=== PATIENT | female | born 1980 | race Caucasian/White ===

== ENCOUNTER → 2020-09-30 10:16 | Outpatient (CLI) | payer OTHER, SELFPAY ==
--- NOTE | ~2020-09-30 | MR_ITS ---
EXAMINATION: MR lumbar spine wo con EXAM DATE: 09/30/2020 10:56 INDICATION: Lumbar radiculopathy, low back pain and right hip pain. TECHNIQUE: Multi-sequential, multiplanar MR images of the lumbar spine were obtained without contrast . Sagittal T1, T2, T2 fat saturation images. Axial T2 weighted images. There is no prior study for comparison. FINDINGS: The vertebral bodies are aligned in the AP dimension. Vertebral body and disc heights are w ell-maintained. There is a 2 cm hemangioma within the L4 vertebral body. The vertebral body marrow is otherwise normal in signal intensity. The conus medullaris terminates at the L1/2 level and has norm al signal intensity and morphology. Paraspinal soft tissue is unremarkable. Level by level evaluation: T12-L1: Disc does not extend beyond the endplate margin. Facet arthropathy: Mild. Neural foraminal stenosis: No stenosis. Central canal stenosis: No stenosis. L1-L2: Disc does not extend beyond the endplate margin. Facet arthropathy: Mild to moderate right, mild left. Neural foraminal stenosis: No stenosis. Central canal stenosis: No stenosis. L2-L3: There is a minimal diffuse disc bulge. Facet arthropathy: None. Neural foraminal stenosis: No stenosis. Central canal stenosis: No stenosis. L3-L4: There is a minimal diffuse disc bulge. Facet arthropathy: Mild to moderate. Neural foraminal stenosis: No stenosis. Central canal stenosis: No stenosis. L4-L5: There is a mild diffuse disc bulge. Facet arthropathy: Moderate. Neural foraminal stenosis: Mild to moderate left, mild right. Central canal stenosis: Mild. L5-S1: Disc does not extend beyond the endplate margin. Facet arthropathy: Moderate to severe left, moderate right. Neural foraminal stenosis: Mild bilateral. Central canal stenosis: No stenosis. IMPRESSION: 1. Mild to moderate lumbar spondylosis. Reviewed, dictated and finalized at location A.
== END ==
PROVIDERS: PCP Internal Medicine; Visit Provider Internal Medicine
DX: M47.26 Other spondylosis with radiculopathy, lumbar region (principal)
CPT/HCPCS: 72148

== ENCOUNTER 2022-04-18 00:53 | Day surgery (SDC) | payer OTHER, SELFPAY ==
[2022-02-28 14:54] VITALS: BMI 49.1
--- NOTE | 2022-02-28 15:26 | PC.NURSE ---
Report to the Outpatient Waiting Room, entrance under the green pavilion located off [facility], at time ___7:00AM____ on date __03/07/22 . Planned Procedure Time: _9:00AM . Time changes happen often and if your time is changed the preop area will call you the afternoon before. - You and your visitor will be asked to self-screen and do not enter if you have any COVID symptoms. - We encourage only one visitor and NO visitors under age 16 are allowed at this time. Your visitor will receive communication by the phone number that is given day of service. - The patient visitor is requested to social distance or may leave the building when not with patient due to restrictions. - A mask is required within the hospital. Patients may have clear liquids (water, carbonated beverages, clear teas, apple juice) until 3 hours prior to surgery with a maximum of 20 ounces. - No food from midnight until time of surgery Take the following medications with a SIP of water the morning of surgery: __DULOXETINE, ALBUTEROL INHALER NEEDED Medications to discontinue per physician ____NONE Date to take last dose Please no make-up, nail [place] islander, hairspray, perfume, deodorant, or body powder the day of surgery. No jewelry (including any body piercings) or valuables the day of surgery, leave them at home. Please take a shower or bath the night before, or the morning of, surgery with an antibacterial soap. Wear comfortable, loose fitting clothing. Children are encouraged to wear pajamas. - Jewelry must be removed prior to entering the operating room. Rings and piercings that are not removed may be cut off. - The hospital will not accept responsibility for valuables. - Please leave all valuables, including medications, at home the day of surgery. If you are going home after surgery, a licensed haul truck driver must drive you home. - NO public transportation without another adult. - We recommend that an adult stay with you for 24 hours following discharge. - We also recommend that you do not drive, make important decision, drink alcoholic beverages, or take any drugs that were not prescribed by your health care provider for at least 24 hours after your discharge time. Follow any additional instructions given to you from your surgeon. If you or anyone in your household have experienced Covid symptoms in the past week, please notify your surgeon or the nurse liaison at the phone number below for possible testing. Telephone instructions given to _PATIENT and asked if any additional questions and then verbalized understanding. Patient advised to call surgeon office or pre surgery nurse liaison [phone] if any additional questions.
[2022-04-05 14:56] VITALS: BMI 49.1
--- NOTE | 2022-04-05 15:04 | PC.NURSE ---
Report to the Outpatient Waiting Room, entrance under the green pavilion located off [facility], at time 6:15 on date 04/18/22. Planned Procedure Time: 8:15. Time changes happen often and if your time is changed the preop area will call you the afternoon before. - You and your visitor will be asked to self-screen and do not enter if you have any COVID symptoms. - Only one visitor is requested with a max of two and NO children visitors are allowed at this time. - The patient visitor may be requested to leave or wait in car when not with patient due to distancing restrictions. - A mask is optional within the hospital. Patients may have clear liquids (water, carbonated beverages, clear teas, apple juice) until 3 hours prior to surgery (5:15) with a maximum of 20 ounces. - No food from midnight until time of surgery Take the following medications with a SIP of water the morning of surgery: INHALER IF NEEDED, DULOXETINE, GABAPENTIN Medications to discontinue per physician: N/A Date to take last dose: N/A Please no make-up, nail swazi, hairspray, perfume, deodorant, or body powder the day of surgery. No jewelry (including any body piercings) or valuables the day of surgery, leave them at home. Please take a shower or bath the night before, or the morning of, surgery with an antibacterial soap. Wear comfortable, loose fitting clothing. - Jewelry must be removed prior to entering the operating room. Rings and piercings that are not removed may be cut off. - The hospital will not accept responsibility for valuables. - Please leave all valuables, including medications, at home the day of surgery. If you are going home after surgery, a licensed dedicated regional driver must drive you home. - NO public transportation without another adult if you receive anesthesia. - We recommend that an adult stay with you for 24 hours following discharge. - We also recommend that you do not drive, make important decision, drink alcoholic beverages, or take any drugs that were not prescribed by your health care provider for at least 24 hours after your discharge time. Follow any additional instructions given to you from your surgeon. If you or anyone in your household have experienced Covid symptoms in the past week, please notify your surgeon or the nurse liaison at the phone number below for possible testing. Telephone instructions given to PATTY BORDEN and asked if any additional questions and then verbalized understanding. Patient advised to call surgeon office or pre surgery nurse liaison [phone] if any additional questions.
[2022-04-18 06:31] VITALS: BP 127/92; PULSE 67; RESP 18; TEMP 36.6; O2SAT 98
[2022-04-18] MEDS: LACTATED RINGERS 1,000 ML 30 ML IV CONT (07:10)
[2022-04-18] MEDS: ACETAMINOPHEN 500 MG TABLET 1000 MG PO (07:19)
[2022-04-18] MEDS: KETOROLAC 15 MG/ML VIAL (*BKC) IV PUSH (07:19)
[2022-04-18 07:22] LABS: Hematocrit 39.6 % (37.0-47.0); Hemoglobin 12.6 g/dL (12.0-15.0)
--- NOTE | 2022-04-18 07:27 | WPDHPUPDATE1 ---
History and Physical Update Update Date/Time: 04/18/22 07:27 History and Physical has been reviewed, including an updated exam of the patient. There are NO changes in the patient's condition. Risks, benefits, and alternatives have been discussed and questions answered. Patient agrees to proceed with procedure.
--- NOTE | 2022-04-18 07:27 | PM.HPGS ---
History of Present Illness History of Present Illness Consent: Risks, benefits, and alternatives have been discussed and questions answered. Patient agrees to proceed with procedure. Chief complaint: missing IUD Narrative: Joseph Howard is a 41 year old female who presented for her well-woman exam in November of 2021 to and no IUD strings were visualized. The patient underwent ultrasound which showed multiple fibroids and inability to visualize the IUD. There is a statement that the fibroids could be obscuring the IUD. The patient then underwent a KUB which does show the pelvis to contain an IUD to the right. It was recommended to proceed with D&C hysteroscopy which the patient has now rescheduled due to having COVID at the time of her previously scheduled procedure. The patient has had now menstrual cycles since the IUD was placed therefore it is very likely that the IUD is in the uterus. The plan is to proceed with D&C hysteroscopy for IUD removal and possible laparoscopy and possible exploratory laparotomy pending the findings at hysteroscopy. The risks of surgery were reviewed in detail. Risks of hysteroscopy including infection, bleeding, perforation, and possibility of not finding the IUD are reviewed. The risks of laparoscopy and laparotomy with a longer recovery were also reviewed. Patient voices understanding and agrees to proceed. Review of Systems Review of Systems: not repeated day of surgery; patient states no changes in status Gastrointestinal: Gastrointestinal: Reports heartburn Genitourinary: Genitourinary: Reports urinary incontinence Musculoskeletal: Musculoskeletal: Reports back pain, Reports arthralgias and Reports neck pain Psychiatric: Psychiatric: Reports anxiety [facility] Past Medical History Medical History (Updated 04/18/22 @ 07:34 by Patria Maki MD) Asthma HTN (hypertension) Osteoarthritis Surgical History Surgical History (Updated 04/18/22 @ 07:33 by Patria Maki MD) History of History of nasal surgery History of tonsillectomy Social History Social History Smoking status: Never smoker Drinks per week: 1 Substance use: never Substance use type: does not use Living arrangements: with family Additional living arrangements comments: HUSB Spiritual care concerns: No Meds Home Medications and Allergies Home Medications Medication Instructions Recorded Confirmed Type albuterol (refill) 90 90 mcg inhalation Q4-6H PRN Dyspnea 02/28/22 04/18/22 History mcg/actuation aerosol inhaler metoprolol succinate 25 mg 25 mg PO HS 02/28/22 04/18/22 History tablet,extended release 24 hr omeprazole magnesium 20 mg 20 mg PO DAILY PRN Indigestion 02/28/22 04/18/22 History tablet,delayed release (Prilosec OTC) spironolactone 25 1 tablet PO QAM 02/28/22 04/18/22 History mg-hydrochlorothiazide 25 mg tablet gabapentin 100 mg capsule 100 mg PO DAILY 04/05/22 04/18/22 History paroxetine HCl 10 mg tablet 10 mg PO BID 04/18/22 04/18/22 History Allergies Allergy/AdvReac Type Severity Reaction Status Date / Time amoxicillin Allergy Rash Verified 04/18/22 06:51 clavulanic acid Allergy Rash Verified 04/18/22 06:51 [From Augmentin] prochlorperazine Allergy PARANOIA Verified 04/18/22 06:51 [From Compazine] CITRIS FRUITS Allergy Anaphylaxis Uncoded 04/18/22 06:52 Exam Const: General: obese ( BMI of 48) Orientation/consciousness: patient oriented x3 Resp: Effort & Inspection: normal respiratory effort GI: GI Palp: Yes Soft to palpation, No Tenderness to palpation present (GI) and No Palpable mass present : External Female Exam: normal external appearance Speculum Exam - Vagina: normal appearance of the vagina and normal vaginal discharge Speculum Exam - Cervix: normal appearance of the cervix Bimanual exam- vagina & uterus: uterine size normal and consistency normal Bimanual Exam- Adnexa, other: normal adnexae and
[2022-04-18 07:31] LABS: Anion Gap 8 mmol/L (8-16); Blood Urea Nitrogen 14 mg/dL (7-17); Calcium 8.9 mg/dL (8.4-10.2); Carbon Dioxide 27 mmol/L (22-30); Chloride 99 mmol/L (98-107); Estimated CRCL calculation 105 ml/min; Estimated Glomerular Filt Rate > 60; Glucose 128 mg/dL (65-110); Potassium 4.5 mmol/L (3.4-5.0); Sodium 134 mmol/L (137-145)
--- NOTE | 2022-04-18 07:52 | WPDANESEPPF ---
Anes - Initial Pre Proc Eval Procedure: Operation Date: 04/18/22 08:15 Proposed Procedures p Hysteroscopy, Intrauterine Device Removal, - Patria Maki MD s Possible Diagnostic Laparoscopy, Possible Exploratory Laparotomy - Patria Maki MD Date/Time: 04/18/22 07:52 Surgeon: Patria Maki MD Pre Op Diagnosis: missing IUD Patient Data Age: 41 Gender: F Height: 1.63 m Weight: 129.3 kg Last Vital Signs Temp 36.6 C 04/18/22 06:31 Pulse 67 04/18/22 06:31 Resp 18 04/18/22 06:31 BP 127/92 H 04/18/22 06:31 Pulse Ox 98 04/18/22 06:31 O2 Del Method Room Air 04/18/22 06:31 Allergies Allergy/AdvReac Type Severity Reaction Status Date / Time amoxicillin Allergy Rash Verified 04/18/22 06:51 clavulanic acid Allergy Rash Verified 04/18/22 06:51 [From Augmentin] prochlorperazine Allergy PARANOIA Verified 04/18/22 06:51 [From Compazine] CITRIS FRUITS Allergy Anaphylaxis Uncoded 04/18/22 06:52 Home Medications Medication Instructions Recorded Confirmed Type albuterol (refill) 90 90 mcg inhalation Q4-6H PRN Dyspnea 02/28/22 04/18/22 History mcg/actuation aerosol inhaler metoprolol succinate 25 mg 25 mg PO HS 02/28/22 04/18/22 History tablet,extended release 24 hr omeprazole magnesium 20 mg 20 mg PO DAILY PRN Indigestion 02/28/22 04/18/22 History tablet,delayed release (Prilosec OTC) spironolactone 25 1 tablet PO QAM 02/28/22 04/18/22 History mg-hydrochlorothiazide 25 mg tablet gabapentin 100 mg capsule 100 mg PO DAILY 04/05/22 04/18/22 History paroxetine HCl 10 mg tablet 10 mg PO BID 04/18/22 04/18/22 History Laboratory Tests 04/18/22 04/18/22 07:10 07:10 Hgb 12.6 g/dL g/dL (12.0-15.0) Hct 39.6 % % (37.0-47.0) Sodium 134 mmol/L L mmol/L (137-145) Potassium 4.5 mmol/L mmol/L (3.4-5.0) Chloride 99 mmol/L mmol/L (98-107) Carbon Dioxide 27 mmol/L mmol/L (22-30) Anion Gap 8 mmol/L mmol/L (8-16) BUN 14 mg/dL mg/dL (7-17) Creatinine 0.80 mg/dL mg/dL (0.7-1.0) Estim Creat Clear Calc 105 ml/min ml/min Estimated GFR > 60 (59 - ) Glucose 128 mg/dL H mg/dL (65-110) Calcium 8.9 mg/dL mg/dL (8.4-10.2) Patient hx anesthesia problems: none Family hx anesthesia problems: none Results Review: All pre-operative results and documents have been reviewed as part of the pre-operative evaluation. [facility] Past Medical History Medical History Asthma GERD (gastroesophageal reflux disease) HTN (hypertension) ZACARIAS (obstructive sleep apnea) Osteoarthritis Surgical History Surgical History History of History of nasal surgery History of tonsillectomy Social History Social History Smoking status: Never smoker Drinks per week: 1 Substance use: never Substance use type: does not use Living arrangements: with family Additional living arrangements comments: HUSB Spiritual care concerns: No Anes - Eval Final PreProcedure Day of Procedure 04/18/22 07:52 Patient weight: morbidly obese Heart: regular rate and rhythm Lungs: clear to auscultation Airway: Mallampati scale class II Neurological: alert and oriented Last oral intake: >/= 8 hours ASA classification: III Emergent: no Anesthetic plan: proceed Anesthesia type and monitoring: general (givs for hysteroscopy if lap needed GETA) GIVS and ETT and standard monitoring Results Review: All pre-operative results and documents have been reviewed as part of the pre-operative evaluation. Informed Consent: The patient's anesthetic plan and its attendant risks and benefits were discussed with the patient/family/POA. Questions were solicited and answers provided to the satisfaction of the patient
[2022-04-18] MEDS: LIDOCAINE HCL 1% PF 30 ML VIAL 10 ML INFILTRATE (08:18)
--- NOTE | 2022-04-18 08:40 | W.PM.PROC2 ---
Procedure Note - Detailed Date of Procedure 04/18/22 Pre-op Diagnosis missing IUD Post-op Diagnosis Same Procedure Performed diagnostic hysteroscopy with removal of IUD Surgeon Patria Maki MD Anesthesia MAC and Local Findings uterus sounds to 10cm; IUD is present in the staff typical location at the fundus with strings pointing upward; The cavity appears grossly normal Description of Procedure The patient was taken to the operating room and placed under anesthesia in the dorsal lithotomy position. She was prepped and draped in the usual sterile fashion. The bivalve speculum was placed in the vagina and the cervix grasped on the anterior lip with a tenaculum. The cervix is injected in each quadrant with lidocaine. The uterus is sounded to 10cm. The cervix is serially dilated to an 8 Hegar. The diagnostic hysteroscope was placed and the IUD is noted within the cavity. There are new hysteroscopic forceps available hysteroscope was therefore removed and the polyp forceps used. The IUD was removed on the 2nd attempt with the polyp forceps. The IUD was removed intact and discarded. All instruments were then removed and the patient awakened from anesthesia and taken to recovery in stable condition. Estimated Blood Loss 5 Drains No Packing No Pathology None sent Complications No immediate complications Condition Stable Disposition PACU
[2022-04-18 08:48] VITALS: BP 112/74; PULSE 73; RESP 18; O2SAT 95
[2022-04-18 09:15] VITALS: BP 119/74; PULSE 66; O2SAT 98
[2022-04-18 09:45] VITALS: BP 115/74; PULSE 56
== END 2022-04-18 10:03 | disposition home or self-care (01) ==
PROVIDERS: Anesthesiology; PCP Internal Medicine; Visit Provider Obstetrics & Gynecology Gynecology
PROC: 0UDB8ZZ Extraction of Endometrium, Via Natural or Artificial Opening Endoscopic (ICD-10-PCS; CPT 58558; principal; 2022-04-18 08:15)
DX: T83.32XA Displacement of intrauterine contraceptive device, initial encounter (principal); Y84.8 Other medical procedures as the cause of abnormal reaction of the patient, or of later complication, without mention of misadventure at the time of the procedure; J45.909 Unspecified asthma, uncomplicated; I10 Essential (primary) hypertension; K21.9 Gastro-esophageal reflux disease without esophagitis; G47.33 Obstructive sleep apnea (adult) (pediatric); M19.90 Unspecified osteoarthritis, unspecified site; Z79.51 Long term (current) use of inhaled steroids; E66.01 Morbid (severe) obesity due to excess calories; Z68.42 Body mass index [BMI] 45.0-49.9, adult
CPT/HCPCS: 58562; 36415; 80048; 85014; 85018; 86850; 86900; 86901; A9270; J1885; J2250; J2405; J2704; J3010; J7030; J7120